=== PATIENT | female | born 1970 | race Caucasian/White ===

== ENCOUNTER 2019-03-14 09:36 | Emergency (ER) | payer BC, MEDICAID ==
[2019-03-14 09:46] VITALS: BP 123/78
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
== END 2019-03-14 11:34 | disposition home or self-care (01) ==
LOC: UCEAST 09:36
DX: S22.31XA Fracture of one rib, right side, initial encounter for closed fracture (principal); W22.8XXA Striking against or struck by other objects, initial encounter; Y93.19 Activity, other involving water and watercraft; Y92.9 Unspecified place or not applicable; Y99.8 Other external cause status; Z88.2 Allergy status to sulfonamides; Z79.01 Long term (current) use of anticoagulants; Z85.3 Personal history of malignant neoplasm of breast
CPT/HCPCS: 99211; G0463